=== PATIENT | female | born 1975 | race Caucasian/White ===

== ENCOUNTER 2018-10-28 18:40 | Emergency (ER) | payer OTHER ==
[~2018-10-28] VITALS: Ht 147.3 cm; Wt 68.0 kg
[2018-10-28 18:43] VITALS: BP 85/48
--- NOTE | 2018-10-28 19:01 | NUR ---
pt unable to void at this time
--- NOTE | 2018-10-28 19:02 | NUR ---
PT BIBA TO BED 10.
--- NOTE | 2018-10-28 19:14 | NUR ---
PT WHEELCHAIR ASSISTED TO RESTROOM
--- NOTE | 2018-10-28 19:20 | NUR ---
Note undone in EDM - 10/28/18 at 1946 by [email or web address] PT BIBA FOR RIGHT UPPER AND LOWER QUADRANT SINCE NOON. PT WAS GIVEN ZOFRAN ON SCENE FOR NAUSEA. PER PT SHE WAS HAVING N/V/D. PT DENIES NAUSEA AT THIS TIME. ABDOMINAL PAIN LEVEL 5/10, SHARP COMES AND GOES. PT HAS PORT ON LEFT UPPER CHEST. NKA. MED HX: CIPD. SAFETY MEASURES IN PLACE. WAITING FOR ERMD TO EVALUATE PT.
--- NOTE | 2018-10-28 19:20 | NUR ---
PT BIBA FOR RIGHT UPPER AND LOWER QUADRANT PAIN SINCE TODAY. PER PT SHE WAS HAVING N/V/D SINCE NOON. PT WAS GIVEN ZOFRAN ON SCENE FOR NAUSEA. PT DENIES NAUSEA AT THIS TIME. ABDOMINAL PAIN LEVEL 5/10, SHARP COMES AND GOES. ABDOMINAL AREA IS TENDER TO TOUCH. PT HAS PORT ON LEFT UPPER CHEST. NKA. MED HX: CIPD. SAFETY MEASURES IN PLACE. WAITING FOR ERMD TO EVALUATE PT. Addendum: 10/28/18 at 2040 by [email or web address] PT STATED "I FELT THIS WAY AFTER I HAD A SMOOTHIE FROM [employer] UP"
--- NOTE | 2018-10-28 20:40 | NUR ---
ERMD AT BEDSIDE
[2018-10-28] MEDS ORDERED: KETOROLAC 30 MG/ML VIAL IM ONE (20:50)
[2018-10-28] MEDS ORDERED: ONDANSETRON 4 MG ODT PO ONE (20:50)
[2018-10-28] MEDS ORDERED: DICYCLOMINE HCL LIQUID 20 MG, ALUMINUM HYD/MAG/SIMETHICONE 30 ML, LIDOCAINE VISCOUS 2% ... PO ONE ×3 (20:50)
[2018-10-28 21:55] VITALS: BP 95/59
--- NOTE | 2018-10-28 21:55 | NUR ---
DPatient discharged with v/s stable. Written and verbal after care instructions given and explained. Patient verbalized understanding. Ambulatory with steady gait. All questions addressed prior to discharge. Advised to follow up with PMD.
== END 2018-10-28 21:55 | disposition home or self-care (01) ==
LOC: MED 18:40
DX: K29.70 Gastritis, unspecified, without bleeding (principal); M25.512 Pain in left shoulder; Z88.5 Allergy status to narcotic agent; Z98.890 Other specified postprocedural states
CPT/HCPCS: 81002; 81025; 96372; 99283; J1885; Q0162